=== PATIENT | female | born 1980 | race African-American/Black ===

== ENCOUNTER 2018-06-10 21:50 | Emergency (ER) | payer OTHER ==
[~2018-06-10] VITALS: Ht 167.6 cm; Wt 73.0 kg
[~2018-06-10 21:50] MED LIST: AUGMENTIN 875-1 EACH PO; CIPRO500 M1 PO; CIPROFLOXACIN500 M1 PO; CLARITIN10 MG PO; FLAGYL PO; FLAGYL500 MG PO; FLONASE 0.05%50 MCG NASAL; IBUPROFEN 400400 M2 PO; IBUPROFEN 800800 MG PO; NAPROSYN500 MG PO; NOHOMEMEDICATIONS; NORCO 5-325 TA1 EACH PO; NORFLEX100 MG PO; PHENAZOPYRIDIN200 M2 PO; PREDNISONE50 MG PO; TYLENOL325 MG PO; ULTRAM 50MG TAB50 MG PO; ZPAK PO
[2018-06-10 21:58] VITALS: BP 103/79
[2018-06-10] MEDS ORDERED: IBUPROFEN 400400 M2 PO (22:37)
[2018-06-10] MEDS ORDERED: NORCO 5-325 TA1 EACH PO (22:37)
== END 2018-06-10 22:50 ==
LOC: ER 21:50
DX: M25.571 Pain in right ankle and joints of right foot (principal); F17.210 Nicotine dependence, cigarettes, uncomplicated

== ENCOUNTER 2018-10-13 15:07 | Emergency (ER) | payer OTHER ==
[~2018-10-13] VITALS: Ht 167.6 cm; Wt 78.0 kg
[2018-10-13] MEDS ORDERED: PREDNISONE 20 M20 MG PO (16:15)
[2018-10-13] MEDS ORDERED: PROMETH-CODEIN 65 ML PO (16:15)
[2018-10-13] MEDS ORDERED: OSELB75 PO (16:20)
[2018-10-13 16:30] VITALS: BP 121/74
== END 2018-10-13 16:30 | disposition home or self-care (01) ==
LOC: ER 15:07
DX: J11.1 Influenza due to unidentified influenza virus with other respiratory manifestations (principal); F17.210 Nicotine dependence, cigarettes, uncomplicated; Z71.6 Tobacco abuse counseling; H92.03 Otalgia, bilateral; R19.7 Diarrhea, unspecified

== ENCOUNTER 2020-06-03 08:01 | Emergency (ER) | payer OTHER ==
[~2020-06-03] VITALS: Ht 167.6 cm; Wt 78.0 kg
[~2020-06-03 08:01] MED LIST changes: +OSELB75 PO; +PREDNISONE 20 M20 MG PO; +PROMETH-CODEIN 65 ML PO
[2020-06-03 10:10] VITALS: BP 135/87
== END 2020-06-03 10:10 ==
LOC: ER 08:01
DX: R51 Headache (principal); H53.149 Visual discomfort, unspecified; F17.210 Nicotine dependence, cigarettes, uncomplicated; Z98.51 Tubal ligation status

== ENCOUNTER 2020-06-11 07:31 | Emergency (ER) | payer OTHER ==
[~2020-06-11] VITALS: Ht 167.6 cm; Wt 78.0 kg
[2020-06-11 09:11] VITALS: BP 129/84
== END 2020-06-11 09:11 | disposition home or self-care (01) ==
LOC: ER 07:31
DX: I80.8 Phlebitis and thrombophlebitis of other sites (principal); F17.210 Nicotine dependence, cigarettes, uncomplicated; Z98.51 Tubal ligation status

== ENCOUNTER → 2020-07-13 | Emergency (ER) | payer OTHER ==
[~2020-07-13] VITALS: Ht 167.6 cm; Wt 73.5 kg
[~2020-07-13] MED LIST changes: +OCUFLOX5 ML LT. EYE
[2020-07-13 17:50] VITALS: BP 126/80
== END ==
LOC: ER 17:38
DX: H00.014 Hordeolum externum left upper eyelid (principal); F17.210 Nicotine dependence, cigarettes, uncomplicated

== ENCOUNTER 2020-09-16 14:07 | Emergency (ER) | payer OTHER ==
[~2020-09-16] VITALS: Ht 167.6 cm; Wt 75.3 kg
[2020-09-16 15:15] VITALS: BP 122/70
== END 2020-09-16 15:15 | disposition home or self-care (01) ==
LOC: ER 14:07
DX: H00.12 Chalazion right lower eyelid (principal); F17.210 Nicotine dependence, cigarettes, uncomplicated; Z98.51 Tubal ligation status

== ENCOUNTER 2021-04-09 15:14 | Emergency (ER) | payer OTHER ==
[~2021-04-09] VITALS: Ht 167.6 cm; Wt 74.4 kg
[2021-04-09 15:21] VITALS: BP 123/85
[2021-04-09] MEDS ORDERED: HYDROCODON-ACE1 EAC7 PO (16:36)
== END 2021-04-09 16:50 | disposition home or self-care (01) ==
LOC: ER 15:14
DX: M25.532 Pain in left wrist (principal); M79.671 Pain in right foot; M79.604 Pain in right leg